=== PATIENT | male | born 1985 | race African-American/Black ===

== ENCOUNTER 2019-10-06 20:21 | Emergency (ER) | payer SELFPAY ==
[~2019-10-06] VITALS: Ht 177.8 cm; Wt 89.5 kg
[2019-10-06 20:38] VITALS: BP 168/98
--- NOTE | 2019-10-06 20:40 | PHYS DOC ---
General Adult EDM: Chief Complaint: DENTAL PROBLEM HPI: HPI: Patient is a 34 year old male who presents with complaint of left upper jaw left pain and reported swelling for the last few days. Patient states the pain is a 10 out of 10 and he states that he has a severe infection. Patient has had no fever.[] Review of Systems: Review of Systems: Constitutional: Denies fever or chills. [] HENT: Positive dental/maxillary pain. [] Respiratory: Denies cough or shortness of breath. [] Cardiovascular: Denies chest pain or edema. [] Neurologic: Denies headache, focal weakness or sensory changes. [] Heart Score: Risk Factors: Risk Factors: DM, Current or recent (<one month) smoker, HTN, HLP, family history of CAD, obesity. Risk Scores: Score 0 - 3: 2.5% MACE over next 6 weeks - Discharge Home Score 4 - 6: 20.3% MACE over next 6 weeks - Admit for Clinical Observation Score 7 - 10: 72.7% MACE over next 6 weeks - Early Invasive Strategies Physical Exam: PE: Constitutional: Well developed, well nourished, no acute distress, non-toxic appearance. Patient's report of pain as far out of proportion to physical findings. [] HENT: Normocephalic, atraumatic, bilateral external ears normal, with widespread caries with no significant gum or jaw swelling. [] Neck: Normal range of motion, no tenderness, supple, no stridor. [] Cardiovascular: Regular rate and rhythm[] Lungs & Thorax: Bilateral breath sounds clear to auscultation [] Extremities: No tenderness, no cyanosis, no clubbing, ROM intact, no edema. [] Neurologic: Alert and oriented X 3, no focal deficits noted. [] EKG: EKG: [] Radiology/Procedures: Radiology/Procedures: [] Course & Med Decision Making: Course & Med Decision Making Pertinent Labs and Imaging studies reviewed. (See chart for details) [] Dragon Disclaimer: Danette Disclaimer: This electronic medical record was generated, in whole or in part, using a voice recognition dictation system. Departure Departure Impression: Primary Impression: Pain due to dental caries Disposition: 07 AGAINST MEDICAL ADVICE (a medical screening exam has been performed and patient has elected to leave for outpatient follow-up in lieu of paying $150 co-pay.) Condition: STABLE Referrals: NO PCP (PCP) EVANGELINA CERRATO Jr. DO October 06, 2019 20:40
== END 2019-10-06 20:40 | disposition left against medical advice (07) ==
LOC: ER 20:21
DX: K02.9 Dental caries, unspecified (principal); K08.89 Other specified disorders of teeth and supporting structures; R68.84 Jaw pain
CPT/HCPCS: 99281